=== PATIENT | male | born 1960 | race Caucasian/White ===

== ENCOUNTER 2025-01-29 16:06 | Emergency (ER) | payer OTHER ==
[~2025-01-29] VITALS: Ht 167.6 cm; Wt 109.4 kg
[2025-01-29] MEDS: NS (Normal Saline) 0.9% 1,000 ML IV ONE (16:40)
[2025-01-29 17:05] LABS: BASO % 0.4 % (0.0-1.0); EOS # 0.1 10^3/uL (0.0-0.5); HEMATOCRIT 30.7 % (42.0-52.0); HEMOGLOBIN 9.9 g/dl (13.5-17.5); LYMPH # 0.7 10^3/uL (1.5-5.0); LYMPH % 9.9 % (24.0-44.0); MEAN CORPUSCULAR HEMOGLOBIN 31.4 pg (27.0-33.0); MEAN CORPUSCULAR HGB CONC 32.2 g/dl (32.0-36.5); MEAN CORPUSCULAR VOLUME 97.5 fl (80.0-96.0); MONO # 0.4 10^3/uL (0.0-0.8); MONO % 6.1 % (2.0-8.0); NEUTROPHILS # 5.9 10^3/uL (1.5-8.5); NEUTROPHILS % 82.3 % (36.0-66.0); PLATELET COUNT, AUTOMATED 215 10^3/uL (150-450); RED BLOOD COUNT 3.15 10^6/uL (4.30-6.10); WHITE BLOOD COUNT 7.2 10^3/uL (4.0-10.0)
[2025-01-29] MEDS: LIDOCAINE 2% 5ML JELLY UROJET TOP ONE (17:10)
[2025-01-29 17:15] LABS: VENOUS BASE EXCESS -12.7 (-2.0-2.0); VENOUS HCO3 14.5 MMOL/L (23.0-27.0); VENOUS PARTIAL PRESSURE O2 37.6 mmHg (30.0-50.0); VENOUS STANDARD HCO3 13.9 MMOL/L; VENOUS TOTAL CO2 15.7 MMOL/L (24.0-28.0)
[2025-01-29 17:16] LABS: INR 1.21; PARTIAL THROMBOPLASTIN TIME 28.4 SECONDS (24.8-34.2); PROTHROMBIN TIME 15.6 SECONDS (12.5-14.5)
[2025-01-29 17:37] LABS: C REACTIVE PROTEIN QUANTITATIV 2.33 MG/DL (<1.0); CK-MB VALUE MASS 34.9 NG/ML (<3.6)
[2025-01-29 17:38] LABS: ALBUMIN 3.2 G/DL (3.2-5.2); BILIRUBIN,DIRECT 0.3 MG/DL (<0.4); BILIRUBIN,TOTAL 0.5 MG/DL (0.3-1.2); CALCIUM LEVEL 9.3 MG/DL (8.3-10.6); CREATININE FOR GFR 5.91 MG/DL (0.70-1.30); GLOMERULAR FILTRATION RATE 10.3 (>49); MAGNESIUM LEVEL 2.2 MG/DL (1.8-2.4); TOTAL PROTEIN 6.9 G/DL (5.7-8.2)
[2025-01-29 17:45] LABS: PROCALCITONIN 0.64 ng/ml
[2025-01-29 17:54] LABS: MB/CK RELATIVE INDEX 3.39 (< OR =4)
[2025-01-29 18:04] LABS: KETONE, URINE AUTO RFX NEGATIVE (NEGATIVE); MUCUS, URINE RFX SMALL (NEGATIVE); NITRITE, URINE AUTO RFX NEGATIVE (NEGATIVE); RBC, URINE AUTO RFX 2 /HPF (0-3); SQUAM EPITHELIAL CELL UR AURFX 0 /HPF (0-6); WBC, URINE AUTO RFX 5 /HPF (0-3)
[2025-01-29] MEDS: NOREPINEPHRINE 4MG IN D5 250ML 4 MG in IV 1 EA IV SCH (18:04)
[2025-01-29 18:06] LABS: LEUKOCYTE ESTERASE UR AUTO RFX TRACE (NEGATIVE)
[2025-01-29] MEDS: DEXTROSE 50% 50ML SYRINGE IV ONE (18:06)
[2025-01-29] MEDS: CALCIUM GLUCONATE 1,000MG/10ML VIAL (100MG/ML) IV ONE (18:07)
[2025-01-29] MEDS: SODIUM BICARBONATE 8.4% INJ 50ML SYRINGE IV ONE (18:07)
[2025-01-29] MEDS: HumuLIN R (REGULAR) INSULIN (NovoLIN R) **100U/ML** PER UNIT IV ONE (18:08)
[2025-01-29] MEDS: LevoFLOXacin IV 750 MG in IV 1 EA IV ONE (18:12)
[2025-01-29] MEDS: ALBUTEROL SULFATE 2.5MG/0.5ML INH NEB SOLN INH ONE (18:23)
[2025-01-29 18:36] LABS: CK-MB VALUE MASS 38.2 NG/ML (<3.6)
[2025-01-29 18:38] LABS: MB/CK RELATIVE INDEX 3.71 (< OR =4)
[2025-01-29] MEDS ORDERED: ATOR80TA59 PO (20:23)
[2025-01-29] MEDS ORDERED: SEMA1PEN2 INJ (20:23)
[2025-01-29] MEDS ORDERED: LISI20TA35 PO (20:23)
[2025-01-29] MEDS ORDERED: GLIP-318 PO (20:23)
[2025-01-29] MEDS ORDERED: HOME MED LIST COMPLETE! XX SCH (20:25)
[2025-01-29 20:42] LABS: CALCIUM LEVEL 9.6 MG/DL (8.3-10.6); CREATININE FOR GFR 5.89 MG/DL (0.70-1.30); GLOMERULAR FILTRATION RATE 10.3 (>49); POTASSIUM SERUM 5.7 MMOL/L (3.5-5.1)
[2025-01-29] MEDS: DOBUTamine HCL 500,000 MCG in IV 1 EA IV SCH (21:36)
[2025-01-29] MEDS: ACETAMINOPHEN *IV* 1,000 MG in IV 1 EA IV ONE (21:37)
[2025-01-29] MEDS: ONDANSETRON 4MG 2ML VIAL IV ONE (21:38)
[2025-01-29] MEDS: NS (Normal Saline) 0.9% 1,000 ML IV SCH (21:38)
[2025-01-29] MEDS ORDERED: DOPamine HCL 400 MG in IV 1 EA IV SCH (22:55)
[2025-01-29 23:18] VITALS: BP 63/32
[2025-01-29] MEDS ORDERED: EPINEPHrine 1MG/10ML SYRINGE 1.5IN ONE (23:20)
[2025-01-29] MEDS ORDERED: SODIUM BICARBONATE 8.4% INJ 50ML SYRINGE ONE (23:20)
[2025-01-29 23:35] VITALS: O2SAT 87
== END 2025-01-30 01:44 | disposition expired ==
LOC: M ED 16:06 → EDBD 16:06 → M ED 01-30 01:44
DX: I21.4 Non-ST elevation (NSTEMI) myocardial infarction (principal); N17.9 Acute kidney failure, unspecified; R57.0 Cardiogenic shock; A41.89 Other specified sepsis; E87.6 Hypokalemia; E11.9 Type 2 diabetes mellitus without complications; E78.5 Hyperlipidemia, unspecified; R91.1 Solitary pulmonary nodule; I51.7 Cardiomegaly; J81.0 Acute pulmonary edema; Z88.0 Allergy status to penicillin
CPT/HCPCS: 31500; 36600; 51702; 71045; 71250; 74176; 80047; 80048; 80076; 81001; 82150; 82550; 82553; 82803; 83605; 83690; 83735; 83880; 84145; 84484; 85025; 85610; 85730; 86140; 86850; 86900; 86901; 87040; 87086; 87486; 87581; 87633; 87798; 93005; 93041; 94760; 96365; 96366; 96368; 96375; 99285; J0131; J0171; J0612; J1250; J1815; J1956; J2405